=== PATIENT | male | born 1940 | race Caucasian/White ===

== ENCOUNTER 2022-04-06 13:01 | Outpatient (CLI) | payer MEDICARE, BC ==
[~2022-04-06 13:01] MED LIST: Iopamidol 300 61% 100 ML VIAL FS ONE
== END 2022-04-06 13:02 | disposition home or self-care (01) ==
LOC: CSHCT 13:01
PROVIDERS: ATTEND Family Medicine
DX: R91.1 Solitary pulmonary nodule (principal); R20.2 Paresthesia of skin; R91.8 Other nonspecific abnormal finding of lung field; J92.9 Pleural plaque without asbestos; M47.812 Spondylosis without myelopathy or radiculopathy, cervical region
CPT/HCPCS: 71260; 72125; 82565; Q9967

== ENCOUNTER 2023-04-13 20:12 | Emergency (ER) | payer MEDICARE, BC ==
[2023-04-13 20:46] LABS: #Eosinphils 0.1 10x3/uL (0.0-0.5); #Monocytes 0.6 10x3/uL (0.0-1.1); #Neutrophils 4.4 10x3/uL (1.5-8.4); %Basophils 0.3 % (0.0-2.0); %Eosinophils 1.9 % (0.0-6.0); %Lymphocytes 17.2 % (18.0-47.0); %Monocytes 9.1 % (0.0-10.0); %Neutrophils 71.2 % (40.0-75.0); Hemoglobin 13.7 g/dL (13.5-17.5); Mean Corpuscular HGB CONC 31.9 g/dL (32.0-36.0); Mean Corpuscular Hemoglobin 28.2 pg (27.0-33.0); Mean Corpuscular Volume 88.7 fl (81.2-95.1); Mean Platelet Volume 10.4 fl (7.4-10.4); Platelet Count 148 10x3/uL (150-450); Red Blood Cell (RBC) Count 4.85 10x6/uL (4.32-5.72); White Blood Cell (WBC) Count 6.2 10x3/uL (3.5-10.5)
[2023-04-13 21:01] LABS: INR-International Normal Ratio 3.7; PTT 50.2 sec (22.0-33.0); Prothrombin Time 39.1 sec (9.5-12.1)
[2023-04-13 21:11] LABS: Troponin I Less than 0.010 ng/mL (< 0.028)
[2023-04-13 21:13] LABS: ALT (SGPT) 17 U/L (8-55); AST (SGOT) 22 U/L (5-34); Albumin 4.2 g/dL (3.4-4.8); Alkaline Phosphatase 101 U/L (40-110); Anion Gap 15 mmol/L (10-20); BUN (Urea Nitrogen) 17 mg/dL (8.4-25.7); Bilirubin, Total 0.7 mg/dL (0.2-1.2); Calc. Creatinine Clearance 0 mL/min (70-130); Calcium 9.1 mg/dL (7.8-10.44); Carbon Dioxide 26 mmol/L (23-31); Chloride 98 mmol/L (98-107); Estimated GFR 83; Globulin 3.1 g/dL (2.4-3.5); Glucose 102 mg/dL (83-110); Magnesium 1.9 mg/dL (1.6-2.6); Potassium 4.4 mmol/L (3.5-5.1); Protein, Total 7.3 g/dL (5.8-8.1); Sodium 135 mmol/L (136-145)
[2023-04-13] MEDS ORDERED: Azithromycin 500 MG in Sodium Chloride 0.9% 250 ML 250 ML IVPB SCH (21:45)
[2023-04-13] MEDS ORDERED: cefTRIAXone\\ROCEPHIN 2 GM in Sodium Chloride 0.9% 100 ML IVPB SCH (21:45)
[2023-04-13] MEDS ORDERED: cefTRIAXone (ROCEPHIN) 1 GM VIAL ONE (21:59)
[2023-04-13] MEDS ORDERED: Azithromycin 500 MG VIAL ONE (21:59)
== END 2023-04-13 23:29 | disposition home or self-care (01) ==
LOC: CSHERS 20:12
DX: J18.9 Pneumonia, unspecified organism (principal); Z87.891 Personal history of nicotine dependence; I48.91 Unspecified atrial fibrillation; I10 Essential (primary) hypertension; Z79.899 Other long term (current) drug therapy; Z79.01 Long term (current) use of anticoagulants
CPT/HCPCS: 71045; 80053; 83735; 83880; 84484; 85025; 85610; 85730; 93005; 96365; 96375; 99285; J0456; 93010; J0696

== ENCOUNTER 2023-10-17 12:13 | Emergency (ER) | payer MEDICARE, BC ==
[2023-10-17 13:13] LABS: #Eosinphils 0.4 10x3/uL (0.0-0.5); #Monocytes 0.7 10x3/uL (0.0-1.1); #Neutrophils 5.8 10x3/uL (1.5-8.4); %Basophils 0.4 % (0.0-2.0); %Eosinophils 4.8 % (0.0-6.0); %Monocytes 8.4 % (0.0-10.0); %Neutrophils 69.9 % (40.0-75.0); Hematocrit 37.6 % (38.8-50.0); Hemoglobin 12.4 g/dL (13.5-17.5); Mean Corpuscular Hemoglobin 29.4 pg (27.0-33.0); Mean Corpuscular Volume 89.1 fl (81.2-95.1); Mean Platelet Volume 10.9 fl (7.4-10.4); Platelet Count 146 10x3/uL (150-450); RBC Distribution Width 13.5 % (11.5-14.5); Red Blood Cell (RBC) Count 4.22 10x6/uL (4.32-5.72); White Blood Cell (WBC) Count 8.3 10x3/uL (3.5-10.5)
[2023-10-17 13:17] LABS: ALT (SGPT) 14 U/L (8-55); AST (SGOT) 16 U/L (5-34); Albumin 3.9 g/dL (3.4-4.8); Alkaline Phosphatase 137 U/L (40-110); Anion Gap 13 mmol/L (10-20); BUN (Urea Nitrogen) 23 mg/dL (8.4-25.7); Bilirubin, Total 0.5 mg/dL (0.2-1.2); Calc. Creatinine Clearance 0 mL/min (70-130); Carbon Dioxide 29 mmol/L (23-31); Chloride 101 mmol/L (98-107); Estimated GFR 62; Globulin 2.7 g/dL (2.4-3.5); Glucose 110 mg/dL (83-110); Lipase 14 U/L (8-78); Magnesium 2.1 mg/dL (1.6-2.6); Potassium 4.4 mmol/L (3.5-5.1); Protein, Total 6.6 g/dL (5.8-8.1); Sodium 139 mmol/L (136-145)
[2023-10-17 13:20] LABS: Bilirubin Neg (Negative); Blood, Urine 250 (Negative); Clarity Hazy (Clear); Glucose, Urine (Dipstick) Normal (Negative); Ketone, Urine Negative (Negative); Leukocyte Negative (Negative); Nitrite Negative (Negative); Protein, Urine (Dipstick) 30 mg/dl (Neg-Trace); Specific Gravity, Urine 1.015 (1.005-1.030); Urobilinogen Normal mg/dL (Less than 2)
[2023-10-17 13:22] LABS: Troponin I Less than 0.010 ng/mL (< 0.028)
[2023-10-17 13:27] LABS: Bacteria/HPF Rare-Few HPF (None Seen); CAUTI Indications for Culture Pelvic or flank pain; RBC/HPF Greater than 50 HPF (0-3); Squamous Epithelial 0-3 HPF (0-3); WBC/HPF 0-3 HPF (0-3)
[2023-10-17 13:29] LABS: Urine Culture Reflex No No
[2023-10-17 14:56] LABS: Influenza A by NAA Not Detected (NotDetected); Influenza B by NAA Not Detected (NotDetected); SARS-CoV-2 NAA Rapid Test Not Detected (NotDetected)
== END 2023-10-17 14:37 | disposition home or self-care (01) ==
LOC: CSHERS 12:13
DX: J18.9 Pneumonia, unspecified organism (principal)
CPT/HCPCS: 0240U; 71045; 80053; 81001; 83690; 83735; 83880; 84484; 85025; 93005; 99285; 36415